=== PATIENT | male | born 2000 | race Caucasian/White ===

== ENCOUNTER → 2021-05-18 13:19 | Outpatient (CLI) | payer OTHER, MEDICAID, SELFPAY ==
--- NOTE | 2021-05-18 | DI.RAD.S_ITS ---
PROCEDURE: XR HIP W PEL IF DONE LT 2V INDICATIONS: BACK PAIN TECHNIQUE: AP pelvis with lateral view(s) of the left hip(s). COMPARISON: None. FINDINGS: Bones: No fractures or dislocations. Pelvic ring appears intact. No suspicious bony lesions. Soft tissues: The visualized bowel gas pattern is normal. No suspicious soft tissue calcifications. IMPRESSION: No evidence acute bony abnormality of the pelvis and left hip. If clinical suspicion and/or symptoms persist, further assessment with repeat plain films, or advanced imaging (e.g., CT, MRI, or bone scan) may be helpful for further assessment. Dictated by: Marin Hughes M.D. on 05/18/2021 at 16:23 Approved by: Marin Hughes M.D. on 05/18/2021 at 16:23
--- NOTE | 2021-05-18 | DI.RAD.S_ITS ---
PROCEDURE: XR LUMBAR SPINE 2-3V INDICATIONS: back pain TECHNIQUE: 3 views of the lumbar spine were acquired. COMPARISON: None. FINDINGS: Bones: 5 [id number] vertebrae are present. There is loss of normal lumbar lordosis.. No vertebral body compression fractures. No suspicious bony lesions. Soft tissues: Overlying bowel gas pattern is normal. No suspicious soft tissue calcifications. IMPRESSION: 1. Loss of normal lumbar lordosis, consistent with muscle spasm. 2. No acute fracture. No osseous lesion. If symptoms and/or clinical suspicion for pathology persist, further assessment with repeat, or advanced imaging (e.g., CT, MRI, or bone scan) may be helpful for further assessment. Dictated by: Rosenda Polanco M.D. on 05/18/2021 at 14:07 Approved by: Rosenda Polanco M.D. on 05/18/2021 at 14:07
== END ==
PROVIDERS: Referring Provider Family Medicine; Visit Provider Family Medicine
DX: M54.50 Low back pain, unspecified (principal)
CPT/HCPCS: 72100; 73502

== ENCOUNTER 2022-06-26 20:09 | Emergency (ER) | payer OTHER, MEDICAID, SELFPAY ==
[2022-06-26 20:20] VITALS: BP 131/64; PULSE 89; RESP 17; TEMP 36.6; O2SAT 100; BMI 20.5
[2022-06-26 21:09] LABS: Alanine Aminotransferase 31 IU/L (<50); Albumin 4.7 g/dL (3.5-5.0); Albumin Globulin Ratio 1.6 (1.0-2.8); Alkaline Phosphatase 81 U/L (38-126); Aspartate Aminotransferase 36 IU/L (17-59); Bilirubin Total 0.5 mg/dL (0.2-1.3); Blood Urea Nitrogen 17 mg/dL (9-20); Carbon Dioxide 25 mmol/L (22-32); Chloride 101 mmol/L (98-107); Estimated Glomerular Filt Rate > 60 mL/min (>60); Glucose 99 mg/dL (70-100); HEMOLYSIS 16 (0-50); Lipase 67 U/L (23-300); Potassium 3.3 mmol/L (3.4-5.1); Sodium 141 mmol/L (137-145); Total Protein 7.7 g/dL (6.3-8.2)
[2022-06-26 21:10] LABS: Add Manual Diff / Slide Review NO; Basophils Absolute Auto 100 /uL (0-100); Basophils Percent Auto 0.6 % (0-2); Eosinophils Absolute Auto 200 /uL (0-450); Eosinophils Percent Auto 1.3 % (2-4); Hematocrit 42.4 % (41-53); Hemoglobin 14.4 g/dL (13.5-17.5); Lymphocytes Absolute Auto 2300 /uL (1100-4500); Lymphocytes Percent Auto 13.9 % (25-40); Mean Corpuscular HGB Conc 33.9 % (30-36); Mean Corpuscular Hemoglobin 28.8 PG (26-34); Mean Corpuscular Volume 84.9 fL (80-100); Monocytes Absolute Auto 800 /uL (0-900); Monocytes Percent Auto 4.6 % (3-14); Neutrophils Absolute Auto 13300 /uL (1500-7000); Neutrophils Percent Auto 79.6 % (50-75); Platelet Count 244 X10^3/uL (150-400); Red Blood Cell Count 4.99 X10^6/uL (4.5-5.9); Red Cell Distribution Width 12.5 % (11.6-14.8); White Blood Cell Count 16.7 X10^3/uL (4.5-11.0)
--- NOTE | 2022-06-26 22:05 | DI.CT.S_ITS ---
PROCEDURE: CT ABDOMEN PELVIS W CON INDICATIONS: IV contrast only/periumbilical pain TECHNIQUE: After the administration of intravenous contrast, axial sections acquired from the lung bases to the pubic symphysis. Coronal and sagittal reformats were performed. For radiation dose reduction, the following was used: automated exposure control, adjustment of mA and/or kV according to patient size. COMPARISON: None. FINDINGS: Image quality: Excellent. Lung bases: Unremarkable. Heart: No significant findings. ABDOMEN: Liver: Unremarkable. Gallbladder: Unremarkable. Biliary ducts: Unremarkable. Pancreas: Unremarkable. Spleen: Unremarkable. Adrenal Glands: Unremarkable. Kidneys and Ureters: Unremarkable. Stomach and Bowel: Stomach, small bowel loops, and colon are unremarkable. Peritoneum: No abnormal intraperitoneal fluid. No free air. Ventral Wall: No hernias. Abdominal Nodes: No retroperitoneal or mesenteric adenopathy by size criteria. Vessels: Aorta and inferior vena cava are normal in size. PELVIS: Pelvic Organs: Unremarkable. Bladder: Unremarkable. Pelvic Nodes: No enlarged lymph nodes. Miscellaneous: No hernias are seen. A normal or abnormal appendix could not be found but no secondary CT evidence of acute appendicitis was identified. Bones: Unremarkable. IMPRESSION: Normal examination, a normal or abnormal appendix could not be located. Dictated by: Evans Merritt M.D. on 06/26/2022 at 23:05 Approved by: Evans Merritt M.D. on 06/26/2022 at 23:06
--- NOTE | 2022-06-26 22:06 | ED.ABDPAIN ---
HPI - Abdominal Pain General Chief Complaint: Abdominal Pain Stated Complaint: lt. side abd. pain/chest pain Time Seen by Provider: 06/26/22 21:50 Source: patient Mode of arrival: Ambulatory History of Present Illness HPI narrative: Patient here with family. Brought here from home. Complained of epigastric/periumbilical pain that started shortly after having a bowel movement at 6:00 p.m. tonight. This lasted about 2 or 3 hours but has resolved without treatment. Never had this pain before. No fever chills. No back pain no urinary complaints. It was sharp pain and nonradiating. Denies any medical problems. No prior abdominal surgical history. No heart disease. Patient is pain-free at this time. No recent illness. No urinary complaints. No black or bloody stools. No shortness of breath no nausea no sweating Related Data Home Medications Medication Instructions Recorded Confirmed estradiol 2 mg tablet 2 mg PO DAILY 06/26/22 06/26/22 minocycline 100 mg capsule 100 mg PO DAILY 06/26/22 06/26/22 Allergies Allergy/AdvReac Type Severity Reaction Status Date / Time No Known Drug Allergies Allergy Verified 06/26/22 20:22 Review of Systems Review of Systems Narrative: GENERAL: negative chills, fatigue, malaise, fever, sweats. HEENT: negative sinus pain, ear pain, sore throat RESPIRATORY: negative dyspnea, cough CARDIOVASCULAR: negative chest pain, palpitations GASTROINTESTINAL: negative nausea, vomiting, positive abdominal pain : negative dysuria, frequency, hematuria MUSCULOSKELETAL: negative muscle or bony pain SKIN: negative rash, skin lesions NEUROLOGIC: negative weakness, numbness ROS Unobtainable: All systems reviewed & are unremarkable except as noted in HPI and below Patient History Social History Smoking Status: Never smoker Smoking Status: Never smoker alcohol intake frequency: other Substance Use Type: marijuana Exam Narrative Exam Narrative: GENERAL: in no distress, not toxic not dyspneic HEAD: Normocephalic. EYES: Pupils equal round ENT: Mucous membranes moist. NECK: Trachea midline. CARDIOVASCULAR: Regular rate and rhythm without murmurs RESPIRATORY: Clear to auscultation. Breath sounds equal bilaterally. No wheezes, rales, or rhonchi. GASTROINTESTINAL: Abdomen soft, non-tender abdomen soft flat nontender no peritoneal signs no McBurney point tenderness no CVA tenderness EXTREMITIES: No gross deformities. BACK: No flank tenderness. NEURO: AOx4. SKIN: Warm and dry PSYCH: Not anxious, is cooperative Initial Vital Signs Initial Vital Signs: Vital Signs Temperature 98 F 06/26/22 20:20 Pulse Rate 89 06/26/22 20:20 Respiratory Rate 17 06/26/22 20:20 Blood Pressure 131/64 06/26/22 20:20 Pulse Oximetry 100 06/26/22 20:20 Oxygen Delivery Method 06/26/22 20:20 Scores HEART Score Heart Score history: Slightly Suspicious Heart Score EKG: Normal Heart Score Age: < 45 years old Heart Score risk factors: No known risk factors Heart Score troponin: < or = to normal limit Heart Score Total: 0 Course Orders Ordered: ED Orders 06/26/22 20:25 EKG-12 Lead Stat 06/26/22 20:37 Complete Blood Count AUTO DIFF Stat Comprehensive Metabolic Panel Stat Lipase Stat Troponin & CK Cardiac Panel Stat 06/26/22 22:05 CT abdomen pelvis w con Stat Discontinued Medications Sodium Chloride (Normal Saline 0.9%) 1,000 mls @ 1,000 mls/hr IV BOLUS ONE Stop: 06/26/22 23:04 Last Infusion: 06/26/22 23:33 Dose: 0 mls/hr Documented By: Admin: 06/26/22 22:22 Dose: 1,000 mls/hr Documented By: ARMEN Vital Signs Vital signs: Vital Signs - 8 hr 06/26/22 20:20 06/26/22 22:36 06/26/22 22:37 Temperature 98 F Pulse Rate 89 81 Respiratory Rate 17 Blood Pressure 131/64 110/66 Pulse Oximetry 100 100 Oxygen Delivery Method Room Air 06/26/22 22:37 06/26/22 23:00 06/26/22 23:30 Temperature Pulse Rate 86 76 88 Respiratory Rate Blood Pressure Pulse Oximetry 100 100 100 Oxygen Delivery Method 06/26/22 23:33 06/26/22 23:33 06/27/22 00:00 Temperature Pulse Rate 95 H 91 H Respiratory Rate Blood Pressure 107/56 L Pulse Oximetry 100 99 Oxygen Delivery Method MDM - Abdominal Pain Lab Data 06/26/22 20:37 06/26/22 20:37 Labs: Lab Results 06/26/22 06/26/22 06/26/22 Range/Units 20:37 20:37 20:37 WBC 16.7 H (4.5-11.0) X10^3/uL RBC 4.99 (4.5-5.9) X10^6/uL Hgb 14.4 (13.5-17.5) g/dL Hct 42.4 (41-53) % MCV 84.9 (80-100) fL MCH 28.8 (26-34) PG MCHC 33.9 (30-36) % RDW 12.5 (11.6-14.8) % Plt Count 244 (150-400) X10^3/uL Neut % (Auto) 79.6 H (50-75) % Lymph % (Auto) 13.9 L (25-40) % [place] % (Auto) 4.6 (3-14) % Eos % (Auto) 1.3 L (2-4) % Baso % (Auto) 0.6 (0-2) % Neut # (Auto) 85334 H (7537-3522) /uL Lymph # (Auto) 2300 (3824-5296) /uL [place] # (Auto) 800 (0-900) /uL Eos # (Auto) 200 (0-450) /uL Baso # (Auto) 100 (0-100) /uL Sodium 141 (137-145) mmol/L Potassium 3.3 L (3.4-5.1) mmol/L Chloride 101 (98-107) mmol/L Carbon Dioxide 25 (22-32) mmol/L BUN 17 (9-20) mg/dL Creatinine 0.81 (0.66-1.25) mg/dL Estimated GFR > 60 (>60) mL/min BUN/Creatinine Ratio 21.0 (6-22) Glucose 99 (70-100) mg/dL Calcium 9.0 (8.4-10.2) mg/dL Total Bilirubin 0.5 (0.2-1.3) mg/dL AST 36 (17-59) IU/L ALT 31 (<50) IU/L Alkaline Phosphatase 81 (38-126) U/L Total Creatine Kinase 150 (55-170) U/L CK-MB (CK-2) 0.92 (<2.37) ng/mL CK-MB (CK-2) Rel Index 0.6 L (1.5-5.0) % Troponin I < 0.012 (0.01-0.034) ng/mL Total Protein 7.7 (6.3-8.2) g/dL Albumin 4.7 (3.5-5.0) g/dL Globulin 3.0 (1.7-4.1) g/dL Albumin/Globulin Ratio 1.6 (1.0-2.8) Lipase 67 (23-300) U/L Point of care testing: Urine Dip Bedside Urine Glucose Negative Bedside Urine Bilirubin - Negative Bedside Urine Ketone - Negative Urine Specific [place] 1.015 Bedside Urine Occult Blood - Negative Bedside Urine pH 6.0 Bedside Urine Protein - Negative Bedside Urine Urobilinogen - Negative Bedside Urine Nitrite - Negative Bedside Urine Leukocytes - Negative Esterase Imaging Data CT scan - abdomen/pelvis: Radiologist's Impression: [address] [address] [address] Scan Report Signed Patient: Simone Sylvester MR#: [id number] : 2000 Acct:[id number] Age/Sex: 22 / M Date of Service: 06/26/22 Loc: ED Accession Number: [id number] ?? Procedure: CT abdomen pelvis w con Ordering Provider: Sebastian Khan MD PROCEDURE:? CT ABDOMEN PELVIS W CON ? INDICATIONS:? IV contrast only/periumbilical pain ? TECHNIQUE:? After the administration of intravenous contrast, axial sections acquired from the lung bases to the pubic symphysis.? Coronal and sagittal reformats were performed.? For radiation dose reduction, the following was used:? automated exposure control, adjustment of mA and/or kV according to patient size.? ? COMPARISON:? None. ? FINDINGS:? Image quality:? Excellent.? ? Lung bases:? Unremarkable. Heart:? No significant findings. ? ABDOMEN: Liver:? Unremarkable.? ? Gallbladder:? Unremarkable.? ? Biliary ducts:? Unremarkable.? ? Pancreas:? Unremarkable.? ? Spleen:? Unremarkable.? ? Adrenal Glands:? Unremarkable.? ? Kidneys and Ureters:? Unremarkable.? ? ? Stomach and Bowel:? Stomach, small bowel loops, and colon are unremarkable.? Peritoneum:? No abnormal intraperitoneal fluid.? No free air.? ? Ventral Wall: ? No hernias.? Abdominal Nodes:? No retroperitoneal or mesenteric adenopathy by size criteria.? Vessels:? Aorta and inferior vena cava are normal in size.? ? PELVIS: Pelvic Organs:? Unremarkable.? ? Bladder:? Unremarkable.? ? Pelvic Nodes: No enlarged lymph nodes.? Miscellaneous: No hernias are seen.? ? A normal or abnormal appendix could not be found but no secondary CT evidence of acute appendicitis was identified. ? Bones:? Unremarkable.? IMPRESSION:? Normal examination, a normal or abnormal appendix could not be located. ? ? Dictated by: Evans Merritt M.D. on 06/26/2022 at 23:05 ? ? Approved by: Evans Merritt M.D. on 06/26/2022 at 23:06 ? [facility] Narrative Medical decision making narrative: Patient here with family. Brought here from home. Complained of epigastric/periumbilical pain that started shortly after having a bowel movement at 6:00 p.m. tonight. This lasted about 2 or 3 hours but has resolved without treatment. Never had this pain before. No fever chills. No back pain no urinary complaints. It was sharp pain and nonradiating. Denies any medical problems. No prior abdominal surgical history. No heart disease. Patient is pain-free at this time. No recent illness. No urinary complaints. No black or bloody stools. No shortness of breath no nausea no sweating After history and exam CBC CMP troponin EKG CT scan abdomen pelvis ordered [facility] CC: Abdominal pain Complicating co-morbidities: None Data collected from: Patient Medical records reviewed: No previous visits here for abdominal pain Differential considered: Includes but not limited to appendicitis/constipation/colic/pancreatitis/UTI/kidney stone Exam documented above, pertinent findings include: Nontender abdomen Lab Test results independently reviewed as above. Pertinent findings: White cell count 16.7, sodium 131 AST 36 ALT 31 lipase 67 Independently reviewed EKG as above normal sinus rhythm normal EKG rate 84 Imaging studies independently reviewed: CT scan abdomen and pelvis no acute process. No secondary signs of appendicitis although the appendix could not be visualized. Treatments: Normal saline Re-evaluations: Patient remains pain-free. Reviewed results with patient and family. At this time appendicitis precautions still reviewed with patient given elevated white cell count. However pain-free at this time. Return precautions reviewed with him. They desire discharge home. Discussion: Appropriate for discharge home. Exam and laboratory studies imaging otherwise reassuring. White cell count nonspecific but may be due to demargination or painful event. No fever here. Appendicitis precautions reviewed with them and they are comfortable with observation at home. Nontoxic at discharge. Diagnosis: Abdominal pain Discharge Plan Departure Patient Disposition: Home Clinical Impression: Abdominal pain Instructions: DI for Appendicitis -- Adult, DI for Abdominal Pain-Adult Activity Restrictions/Additional Instructions: Please see family doctor this week for re-evaluation. Please return immediately if any return abdominal pain or fever or chills or problems urinating or if any nausea and vomiting. Exam imaging/CT scan is reassuring at this time however instructions for appendicitis has been provided for you. Keep well hydrated. Prescriptions: No Action minocycline 100 mg capsule 100 mg PO DAILY estradiol 2 mg tablet 2 mg PO DAILY Referrals: Frankie Guillen MD [Primary Care Provider] - Stand Alone Forms: Patient Portal/API
[2022-06-26] MEDS: SODIUM CHLORIDE 0.9% 1,000 ML 1000 ML IV (22:22)
[2022-06-26 22:36] VITALS: PULSE 81; O2SAT 100
[2022-06-26 22:37] VITALS: BP 110/66; PULSE 86; O2SAT 100
[2022-06-26 22:37] LABS: Creatine Kinase 150 U/L (55-170)
[2022-06-26 22:49] LABS: Troponin I < 0.012 ng/mL (0.01-0.034)
[2022-06-26 22:52] LABS: CKMB % Relative Index 0.6 % (1.5-5.0); Creatine Kinase MB 0.92 ng/mL (<2.37)
[2022-06-26 23:00] VITALS: PULSE 76; O2SAT 100
[2022-06-26 23:30] VITALS: PULSE 88; O2SAT 100
[2022-06-26 23:33] VITALS: BP 107/56; PULSE 95; O2SAT 100
[2022-06-27] VITALS: PULSE 91; O2SAT 99
== END 2022-06-27 00:22 | disposition home or self-care (01) ==
PROVIDERS: Emergency Provider Emergency Medicine; PCP Family Medicine
DX: R10.84 Generalized abdominal pain (principal)
CPT/HCPCS: 74177; 80053; 81003; 82550; 82553; 83690; 84484; 85025; 93005; 99284; Q9967

== ENCOUNTER → 2023-08-02 09:21 | Outpatient (CLI) | payer OTHER, MEDICAID, SELFPAY ==
--- NOTE | 2023-08-02 | DI.RAD.S_ITS ---
PROCEDURE: XR CHEST 2V INDICATIONS: cough TECHNIQUE: 2 views of the chest were acquired. COMPARISON: None. FINDINGS: Surgical changes and devices: None. Lungs and pleura: Lungs are clear. No pleural effusions or pneumothorax. Mediastinum: Mediastinal contours are normal. Heart size is normal. Bones and chest wall: No suspicious bony abnormalities. Soft tissues appear unremarkable. IMPRESSION: No acute cardiopulmonary abnormality is seen. Dictated by: Micheal Wu M.D. on 08/02/2023 at 12:31 Approved by: Micheal Wu M.D. on 08/02/2023 at 12:31
== END ==
PROVIDERS: PCP Family Medicine; Referring Provider Family Medicine; Visit Provider Family Medicine
DX: R05.9 Cough, unspecified (principal)
CPT/HCPCS: 71046

== ENCOUNTER → 2023-09-07 12:12 | Outpatient (CLI) | payer OTHER, MEDICAID, SELFPAY ==
--- NOTE | 2023-09-07 12:13 | DI.CT.S_ITS ---
PROCEDURE: CT CERVICAL SPINE WO CON INDICATIONS: Cervicalgia TECHNIQUE: Noncontrast 3 mm thick sections acquired from the skull base to the T4 level. Sagittal and coronal reformats were then constructed. For radiation dose reduction, the following was used: automated exposure control, adjustment of mA and/or kV according to patient size. COMPARISON: None. FINDINGS: Image quality: Excellent. Bones: No fractures or dislocations. Visualized superior ribs are intact. Soft tissues: Prevertebral soft tissues are normal in thickness. No paravertebral hematomas. No apical pneumothoraces. IMPRESSION: Cervical spine CT within normal limits. If it would be helpful for clinical management decision making, please consider a dedicated cervical spine MRI for further evaluation (assuming that there is no contraindication). Dictated by: Ishaan Barbosa M.D. on 09/07/2023 at 12:49 Approved by: Ishaan Barbosa M.D. on 09/07/2023 at 12:52
== END ==
PROVIDERS: PCP Family Medicine; Referring Provider Family Medicine; Visit Provider Family Medicine
DX: M54.2 Cervicalgia (principal)
CPT/HCPCS: 72125

== ENCOUNTER → 2023-11-15 09:37 | Outpatient (CLI) | payer OTHER, MEDICAID, SELFPAY ==
--- NOTE | 2023-11-15 09:39 | DI.US.S_ITS ---
PROCEDURE: US SOFT TISSUE HEAD AND NECK INDICATIONS: NECK MASS TECHNIQUE: Real-time scanning was performed of the neck region of interest, with image documentation. COMPARISON: [facility], CT, CT CERVICAL SPINE WO CON, 09/07/2023, 12:34. FINDINGS: Targeted ultrasound of the left neck/submandibular area. There is an oval subcutaneous hypoechoic nodule measuring 1.4 x 1.1 x 0.2 cm. No internal vascularity is appreciated. No surrounding hyperemia. No fluid collection. IMPRESSION: Probable small lymph node in the left submandibular region. No suspicious imaging features. Recommend clinical correlation and surveillance. Dictated by: Yong Garay M.D. on 11/15/2023 at 19:49 Approved by: Yong Garay M.D. on 11/15/2023 at 19:51
== END ==
PROVIDERS: PCP Family Medicine; Referring Provider Family Medicine; Visit Provider Family Medicine
DX: R22.1 Localized swelling, mass and lump, neck (principal)
CPT/HCPCS: 76536

== ENCOUNTER → 2024-03-20 07:36 | Outpatient (CLI) | payer OTHER, MEDICAID, SELFPAY ==
--- NOTE | 2024-03-20 07:38 | DI.RAD.S_ITS ---
PROCEDURE: XR LUMBAR SPINE 2-3V INDICATIONS: BACK PAIN TECHNIQUE: 3 views of the lumbar spine were acquired. COMPARISON: [facility], CR, XR LUMBAR SPINE 2-3V, 05/18/2021, 14:42. FINDINGS: Bones: 5 [id number] vertebrae are present. There is normal bony alignment. No vertebral body compression fractures. No suspicious bony lesions. Soft tissues: Overlying bowel gas pattern is normal. No suspicious soft tissue calcifications. IMPRESSION: No acute bony abnormality. Approved by: Devante Stringer M.D. on 03/20/2024 at 17:14
== END ==
PROVIDERS: PCP Family Medicine; Referring Provider Family Medicine; Visit Provider Family Medicine
DX: M54.50 Low back pain, unspecified (principal)
CPT/HCPCS: 72100

== ENCOUNTER → 2024-08-11 09:35 | Outpatient (CLI) | payer OTHER, SELFPAY ==
--- NOTE | 2024-08-11 09:38 | DI.RAD.S_ITS ---
PROCEDURE: XR HIP W PEL IF DONE LT 2V INDICATIONS: L HIP PAIN TECHNIQUE: Two views of the left hip were acquired. COMPARISON: [facility], CR, XR HIP W PEL IF DONE LT 2V, 05/18/2021, 14:42. FINDINGS: Bones: There are no osseous abnormalities. SI and hip joints: The SI and hip joints are normal with align with arthritic change Soft tissues: No soft tissue swelling, calcification or mass. IMPRESSION: Normal Dictated by: Stephen Dominguez M.D. on 08/12/2024 at 11:23 Approved by: Stephen Dominguez M.D. on 08/12/2024 at 11:25
== END ==
PROVIDERS: PCP Family Medicine; Referring Provider Family Medicine; Visit Provider Family Medicine
DX: M25.552 Pain in left hip (principal)
CPT/HCPCS: 73502

== ENCOUNTER 2024-10-22 13:48 | Emergency (ER) | payer OTHER, SELFPAY ==
[2024-10-22 13:56] VITALS: BP 119/56; PULSE 76; RESP 20; TEMP 36.1; O2SAT 100; BMI 21.9
--- NOTE | 2024-10-22 14:34 | ED_ITS ---
<Statement entered by Stephen Zuñiga, DO - 10/22/24 19:33> Dr. Yogesh mascorro statement: I was available for consultation during this patient's emergency department visit. This chart is signed by myself for administrative purposes only. I do not have direct contact with this patient during the visit. They were seen by the APC independently. HPI - Male Genitourinary General Chief complaint: Urogenital-Male Stated complaint: Lower stomach pain a few hours Time Seen by Provider: 10/22/24 14:34 History of Present Illness HPI Narrative: Simone Barber (she/her) is a very pleasant 24 year old male with a past medical history of asthma who presents to the emergency department for left lower quadrant abdominal pain and difficulty urinating x1 day. Patient states they have been unable to urinate since last night, when I urinate last night they did not notice any pain or difficulty. However about 2 hours ago they develop sharp somewhat sudden pain in the left lower quadrant of the abdomen radiating to left side of the low back that is constant but occasionally becomes very sharp and much worse. They are unable to urinate despite drinking water. She denies a history of any abdominal surgeries or kidney problems but states that when she was in the 1st grade she did have to have a urinary catheter for a bladder infection. Denies fevers, chills, chest pain, shortness of breath, cough, hematuria, constipation, diarrhea. She is here with her dad. Prescription medications include doxycycline for acne, estrogen injections, spironolactone. Related Data Home Medications ?Medication ?Instructions ?Recorded ?Confirmed estradiol 2 mg tablet 2 mg PO DAILY 06/26/2206/26 minocycline 100 mg capsule 100 mg PO DAILY 06/26/22 Allergies Allergy/AdvReac Type Severity Reaction Status Date / Time No Known Drug Allergies Allergy Verified 10/22/24 13:57 Review of Systems Review of Systems ROS Unobtainable: All systems reviewed & are unremarkable except as noted in HPI and below Patient History Social History Smoking Status: Never smoker Smoking Status: Never smoker alcohol intake frequency: other Alcohol type: beer Exam Narrative Exam Narrative: GENERAL: 24 year old transgender female patient appears stated age. Well- developed patient, in no acute distress. HEAD: Atraumatic. Normocephalic. NECK: Trachea midline. Cervical ROM intact. CARDIOVASCULAR: Regular rate and rhythm. RESPIRATORY: ?Nonlabored respirations. ?Speaking in clear, full sentences. ?Clear to auscultation. Breath sounds equal bilaterally. No wheezes, rales, or rhonchi. ? GASTROINTESTINAL: Abdomen soft, nondistended. Tenderness to palpation of the left lower quadrant of the abdomen with no rebound or guarding. EXTREMITIES: No edema or joint tenderness. BACK: No CVA tenderness bilaterally. NEURO: AOx3. ?Clear speech. ?Moves all 4 extremities appropriately. SKIN: No rash or erythema of visible areas Initial Vital Signs Initial Vital Signs: Vital Signs Temperature 97 F L 10/22/24 13:56 Pulse Rate 76 10/22/24 13:56 Respiratory Rate 20 10/22/24 13:56 Blood Pressure 119/56 L 10/22/24 13:56 Pulse Oximetry 100 10/22/24 13:56 Oxygen Delivery Method Room Air 10/22/24 13:56 Course Orders Ordered: ED Orders 10/22/24 14:44 CT abdomen pelvis w con Stat 10/22/24 14:51 Complete Blood Count AUTO DIFF Stat Comprehensive Metabolic Panel Stat Lipase Stat 10/22/24 15:47 Urine Microscopic Stat Discontinued Medications Sodium Chloride (Normal Saline 0.9%) 1,000 mls @ 1,000 mls/hr IV BOLUS ONE Stop: 10/22/24 15:43 Last Infusion: 10/22/24 15:40 Dose: Infused Documented By: Admin: 10/22/24 15:01 Dose: 1,000 mls/hr Documented By: ARMEN Ketorolac Tromethamine (Ketorolac 30 Mg/Ml Vial) 15 mg IV NOW ONE Stop: 10/22/24 14:45 Last Admin: 10/22/24 15:01 Dose: 15 mg Documented By: SB Vital Signs Vital signs: Vital Signs - 8 hr 10/22/24 13:56 Temperature 97 F L Pulse Rate 76 Respiratory Rate 20 Blood Pressure 119/56 L Pulse Oximetry 100 Oxygen Delivery Method Room Air MDM - Male Genitourinary Medical Records Attestation: I reviewed the patient's medical records. Lab Data 10/22/24 14:51 10/22/24 14:51 Labs: Lab Results 10/22/24 10/22/24 Range/Units 14:51 15:47 WBC 9.0 (4.5-11.0) X10^3/uL RBC 4.33 L (4.5-5.9) X10^6/uL Hgb 13.0 L (13.5-17.5) g/dL Hct 38.7 L (41-53) % MCV 89.4 (80-100) fL MCH 30.1 (26-34) PG MCHC 33.7 (30-36) % RDW 12.4 (11.6-14.8) % Plt Count 227 (150-400) X10^3/uL Neut % (Auto) 67.3 (50-75) % Lymph % (Auto) 23.7 L (25-40) % [place] % (Auto) 5.6 (3-14) % Eos % (Auto) 2.1 (2-4) % Baso % (Auto) 1.3 (0-2) % Neut # (Auto) 6000 (2120-3447) /uL Lymph # (Auto) 2100 (7863-7419) /uL [place] # (Auto) 500 (0-900) /uL Eos # (Auto) 200 (0-450) /uL Baso # (Auto) 100 (0-100) /uL Sodium 138 (137-145) mmol/L Potassium 3.8 (3.4-5.1) mmol/L Chloride 105 (98-107) mmol/L Carbon Dioxide 24 (22-32) mmol/L BUN 15 (9-20) mg/dL Creatinine 0.76 (0.66-1.25) mg/dL Estimated GFR > 60 (>60) mL/min BUN/Creatinine Ratio 19.7 (6-22) Glucose 82 (70-99) mg/dL Calcium 9.2 (8.4-10.2) mg/dL Total Bilirubin 0.8 (0.2-1.3) mg/dL AST 29 (17-59) IU/L ALT 21 (<50) IU/L Alkaline Phosphatase 60 (38-126) U/L Total Protein 8.0 (6.3-8.2) g/dL Albumin 4.7 (3.5-5.0) g/dL Globulin 3.3 (1.7-4.1) g/dL Albumin/Globulin Ratio 1.4 (1.0-2.8) Lipase 74 (23-300) U/L Urine RBC None seen (0-5/HPF) Urine WBC None seen (0-5/HPF) Ur Squamous Epith Cells 5-10 /hpf H (0-5/HPF) Urine Bacteria None seen (None) Ur Culture Indicated? Cult not indicated Vol Urine Centrifuged 10ml (spun) Urine Dip Bedside Urine Glucose Negative Bedside Urine Bilirubin - Negative Bedside Urine Ketone ++ 40 Urine Specific [place] 1.010 Bedside Urine Occult Blood - Negative Bedside Urine pH 5.5 Bedside Urine Protein +/- 15 Bedside Urine Urobilinogen - Negative Bedside Urine Nitrite - Negative Bedside Urine Leukocytes - Negative Esterase Imaging Data CT scan - abdomen/pelvis: Radiologist's Impression: PROCEDURE: CT ABDOMEN PELVIS W CON INDICATIONS: LLQ abd pain; difficulty urinating TECHNIQUE: After the administration of intravenous contrast, axial sections acquired from the lung bases to the pubic symphysis. Coronal and sagittal reformats were performed. For radiation dose reduction, the following was used: automated exposure control, adjustment of mA and/or kV according to patient size. COMPARISON: [facility], CT, CT ABDOMEN PELVIS W CON, 06/26/2022, 22:09. FINDINGS: Image quality: Diagnostic. Lower Chest: No significant findings. ABDOMEN: Liver: No solid mass. Gallbladder: No radiopaque gallstones or wall thickening. Biliary ducts: No biliary dilation. Pancreas: No ductal dilation. Spleen: Size is within normal limits. Adrenal Glands: No adrenal nodules. Kidneys and Ureters: No hydronephrosis. No solid mass. No complex renal cystic lesion which requires follow up. Stable left renal cyst. Stomach and Bowel: Normal colonic caliber, without significant wall thickening. Normal appendix. Peritoneum: Small amount of free fluid is seen in the pelvis, which is nonspecific and may be reactive. No free air. Ventral Wall: No significant ventral hernia. Abdominal Nodes: No retroperitoneal or mesenteric adenopathy by size criteria. Vessels: Aorta and inferior vena cava are normal in size. PELVIS: Pelvic Organs: Unremarkable. Bladder: No bladder wall thickening, accounting for underdistention. Pelvic Nodes: No enlarged lymph nodes. Miscellaneous: No inguinal hernias are seen. Bones: No aggressive osseous abnormality. IMPRESSION: No acute abnormality identified in the abdomen or pelvis. Normal appendix. Approved by: Ty Banks M.D. on 10/22/2024 at 15:45 MDM Narrative Medical decision making narrative: 24 year old male with a past medical history of asthma who presents to the emergency department for left lower quadrant abdominal pain and difficulty urinating x1 day. Differential diagnosis includes but not limited to urinary obstruction, nephrolithiasis, ureterolithiasis, cystitis, UTI, colitis, appendicitis, hernia, etc. On exam the patient is in no acute distress, nontoxic-appearing, all vital signs within normal limits. She is tenderness palpation of the left lower quadrant of her abdomen with no CVA tenderness. No abdominal distention. Difficulty urinating. We will check UA, CBC, CMP, lipase, CT abdomen pelvis with IV contrast, treat with fluids and Toradol. If patient is unable to provide urine sample despite hydration we will obtain bladder scan. CT reveals no acute abnormality identified in the abdomen or pelvis. Normal appendix. There is a stable left renal cyst. The patient's bladder was underdistended. UA reveals ketones, 5-10 squamous epithelial cells, but no signs of infection or blood. Labs overall reassuring with a normal WBC count of 9.0, very mildly decreased hemoglobin of 13.0, hematocrit 38.7. Normal electrolytes with a sodium 138, potassium 3.8. Normal renal function BUN 15 creatinine 0.76 normal LFTs and lipase. Patient urinated without difficulty in the ED after receiving IV fluids and her abdominal pain has resolved. Discussed the importance of hydration, prompt follow up with the PCP, and strict ED return precautions. Repeat abdominal exam benign. Patient and family member verbalized understanding all information agreeable with the plan. She is stable for discharge home. Discharge Plan Departure Patient Disposition: Home Clinical Impression: Abdominal pain, LLQ, Renal cyst, left Instructions: DI for Abdominal Pain-Adult Activity Restrictions/Additional Instructions: Deahonorio Barber, Thank you for coming to the emergency department. Today the CT scan of your abdomen and pelvis showed a stable left kidney cyst and no other abnormalities. Your urine test was negative for infection and your blood work was overall reassuring except for very mild anemia. At this time I would like you to increase hydration, rest, use ibuprofen and Tylenol if needed for pain and follow up with the primary care doctor. Please return to the emergency department immediately if you develop any new or worsening symptoms, severe pain, fevers, inability to urinate despite drinking water or any other concerns. Please take Ibuprofen (Motrin/Advil) or Acetaminophen (Tylenol) for pain. These are available over the counter. You may take Ibuprofen 600 mg every 8 hours with food for pain. You may also take Acetaminophen 650 mg every 4-6 hours for pain. Do not exceed 3000 mg of Tylenol a day as this can cause liver damage. Do not drink alcohol with either of these medications. Please follow up with your primary care doctor within the next 2-3 days for ER follow-up. (If you do not have a PCP you can call [phone]. ?to schedule an appointment with an [facility] Primary Care Provider) IF YOU DEVELOP ANY NEW OR WORSENING SYMPTOMS, RETURN TO THE ER! Please read the attached instructions, they highlight more specific treatments and interventions for you at home. Thank you for letting me participate in your care, Amy Zavala PA-C Prescriptions: No Action minocycline 100 mg capsule 100 mg PO DAILY estradiol 2 mg tablet 2 mg PO DAILY Referrals: Frankie Guillen MD [Primary Care Provider, [facility]] Stand Alone Forms: Patient Portal/API
--- NOTE | 2024-10-22 14:44 | DI.CT.S_ITS ---
PROCEDURE: CT ABDOMEN PELVIS W CON INDICATIONS: LLQ abd pain; difficulty urinating TECHNIQUE: After the administration of intravenous contrast, axial sections acquired from the lung bases to the pubic symphysis. Coronal and sagittal reformats were performed. For radiation dose reduction, the following was used: automated exposure control, adjustment of mA and/or kV according to patient size. COMPARISON: [facility], CT, CT ABDOMEN PELVIS W CON, 06/26/2022, 22:09. FINDINGS: Image quality: Diagnostic. Lower Chest: No significant findings. ABDOMEN: Liver: No solid mass. Gallbladder: No radiopaque gallstones or wall thickening. Biliary ducts: No biliary dilation. Pancreas: No ductal dilation. Spleen: Size is within normal limits. Adrenal Glands: No adrenal nodules. Kidneys and Ureters: No hydronephrosis. No solid mass. No complex renal cystic lesion which requires follow up. Stable left renal cyst. Stomach and Bowel: Normal colonic caliber, without significant wall thickening. Normal appendix. Peritoneum: Small amount of free fluid is seen in the pelvis, which is nonspecific and may be reactive. No free air. Ventral Wall: No significant ventral hernia. Abdominal Nodes: No retroperitoneal or mesenteric adenopathy by size criteria. Vessels: Aorta and inferior vena cava are normal in size. PELVIS: Pelvic Organs: Unremarkable. Bladder: No bladder wall thickening, accounting for underdistention. Pelvic Nodes: No enlarged lymph nodes. Miscellaneous: No inguinal hernias are seen. Bones: No aggressive osseous abnormality. IMPRESSION: No acute abnormality identified in the abdomen or pelvis. Normal appendix. Approved by: Ty Banks M.D. on 10/22/2024 at 15:45
[2024-10-22] MEDS: SODIUM CHLORIDE 0.9% 1,000 ML 1000 ML IV (15:01)
[2024-10-22] MEDS: KETOROLAC 30 MG/ML VIAL 15 MG IV (15:01)
[2024-10-22 15:05] LABS: Add Manual Diff / Slide Review NO; Basophils Absolute Auto 100 /uL (0-100); Basophils Percent Auto 1.3 % (0-2); Eosinophils Absolute Auto 200 /uL (0-450); Eosinophils Percent Auto 2.1 % (2-4); Hematocrit 38.7 % (41-53); Lymphocytes Absolute Auto 2100 /uL (1100-4500); Lymphocytes Percent Auto 23.7 % (25-40); Mean Corpuscular HGB Conc 33.7 % (30-36); Mean Corpuscular Hemoglobin 30.1 PG (26-34); Mean Corpuscular Volume 89.4 fL (80-100); Monocytes Absolute Auto 500 /uL (0-900); Monocytes Percent Auto 5.6 % (3-14); Neutrophils Absolute Auto 6000 /uL (1500-7000); Neutrophils Percent Auto 67.3 % (50-75); Platelet Count 227 X10^3/uL (150-400); Red Blood Cell Count 4.33 X10^6/uL (4.5-5.9); Red Cell Distribution Width 12.4 % (11.6-14.8)
[2024-10-22 15:19] LABS: Alanine Aminotransferase 21 IU/L (<50); Albumin 4.7 g/dL (3.5-5.0); Albumin Globulin Ratio 1.4 (1.0-2.8); Alkaline Phosphatase 60 U/L (38-126); Aspartate Aminotransferase 29 IU/L (17-59); BUN Creatinine Ratio 19.7 (6-22); Bilirubin Total 0.8 mg/dL (0.2-1.3); Blood Urea Nitrogen 15 mg/dL (9-20); Calcium 9.2 mg/dL (8.4-10.2); Carbon Dioxide 24 mmol/L (22-32); Chloride 105 mmol/L (98-107); Estimated Glomerular Filt Rate > 60 mL/min (>60); Globulin 3.3 g/dL (1.7-4.1); Glucose 82 mg/dL (70-99); HEMOLYSIS < 15 (0-50); Lipase 74 U/L (23-300); Potassium 3.8 mmol/L (3.4-5.1); Sodium 138 mmol/L (137-145)
[2024-10-22 16:20] LABS: Bacteria Urine None Seen; Culture Indicated Urine Cult Not Indicated; RBC Urine None Seen (0-5/HPF); Squamous Epithelial Cell Urine 5-10 /HPF (0-5/HPF); Urine Volume 10mL (spun); WBC Urine None Seen (0-5/HPF)
[2024-10-22 17:06] VITALS: BP 104/61; PULSE 63; RESP 16; O2SAT 100
== END 2024-10-22 17:06 | disposition home or self-care (01) ==
PROVIDERS: Emergency Provider Physician Assistant; PCP Family Medicine
DX: R10.32 Left lower quadrant pain (principal); N28.1 Cyst of kidney, acquired; R30.0 Dysuria
CPT/HCPCS: 36415; 74177; 80053; 81003; 81015; 83690; 85025; 96361; 96374; 99284; J1885; Q9967

== ENCOUNTER → 2024-11-27 12:06 | Outpatient (CLI) | payer OTHER, SELFPAY ==
--- NOTE | 2024-11-27 12:08 | DI.RAD.S_ITS ---
PROCEDURE: XR FOOT RT MIN 3V INDICATIONS: R GREAT TOE CONTUSION TECHNIQUE: 3 views of the foot were acquired. COMPARISON: None. FINDINGS: Bones: No fractures or dislocations. No suspicious bony lesions. Soft tissues: No tibiotalar joint effusion. Achilles tendon appears normal. IMPRESSION: No acute bony abnormality. Dictated by: Yong Garay M.D. on 11/28/2024 at 11:57 Approved by: Yong Garay M.D. on 11/28/2024 at 11:59
== END ==
PROVIDERS: PCP Family Medicine; Referring Provider Family Medicine; Visit Provider Family Medicine
DX: S90.111A Contusion of right great toe without damage to nail, initial encounter (principal); X58.XXXA Exposure to other specified factors, initial encounter
CPT/HCPCS: 73630